=== PATIENT | female | born 1955 | race African-American/Black ===

== ENCOUNTER 2019-02-28 15:39 | Emergency (ER) | payer SELFPAY ==
[~2019-02-28] VITALS: Ht 160 cm; Wt 66.0 kg
[2019-02-28] MEDS ORDERED: KETOROLAC 30MG/ML VIAL IM ONE (18:15)
[2019-02-28 19:29] VITALS: BP 130/68
== END 2019-02-28 19:36 | disposition home or self-care (01) ==
LOC: ER 15:39
DX: S10.83XA Contusion of other specified part of neck, initial encounter (principal); S20.221A Contusion of right back wall of thorax, initial encounter; S20.211A Contusion of right front wall of thorax, initial encounter; V49.59XA Passenger injured in collision with other motor vehicles in traffic accident, initial encounter; Y93.89 Activity, other specified; Y92.410 Unspecified street and highway as the place of occurrence of the external cause; I10 Essential (primary) hypertension; E11.9 Type 2 diabetes mellitus without complications
CPT/HCPCS: 71101; 96372; 99283; J1885